=== PATIENT | male | born 1990 | race Caucasian/White ===

== ENCOUNTER 2017-11-25 02:58 | Emergency (ER) | payer SELFPAY ==
[2017-11-25] MEDS ORDERED: ONDANSETRON 4 MG/2 ML VIAL IVP ONE (03:09)
[2017-11-25] MEDS ORDERED: NS 1,000 ML IV ONE ×2 (03:09→04:42)
--- NOTE | 2017-11-25 03:09 | EDPHY ---
H & P Stated Complaint: N/V x3 hours. Time Seen by Provider: 11/25/17 03:09 HPI/ROS: HPI CHIEF COMPLAINT: Nausea vomiting abdominal pain. HISTORY OF PRESENT ILLNESS: This patient is a 27-year-old male, he presents emergency room with abdominal pain. Patient states his main complaint is epigastric abdominal pain with associated vomiting. He states the past 3 hr he has vomited multiple times he describes it is yellow no blood. Denies any chest pain or shortness of breath. His main complaint is epigastric burning pain. He states he when out earlier in the evening and had multiple drinks alcoholic. However he returned home and developed abdominal pain around midnight. No diarrhea. Denies any lower abdominal pain the pain is mid abdomen epigastric. Denies fever. Girlfriend at bedside states that he had multiple shots tonight and beer. Past Medical History: Denies significant medical history Past Surgical History: Denies significant surgical history Social History: Endorses alcohol this evening.. Family History: Noncontributory. ROS REVIEW OF SYSTEMS: A comprehensive 10 point review of systems is otherwise negative aside from elements mentioned in the history of present illness. Exam Constitutional triage nursing summary reviewed, vital signs reviewed, awake/ alert. Eyes normal conjunctivae and sclera, EOMI, PERRLA. HENT normal inspection, atraumatic, moist mucus membranes, no epistaxis, neck supple/ no meningismus, no raccoon eyes. Respiratory clear to auscultation bilaterally, normal breath sounds, no respiratory distress, no wheezing. Cardiovascular rate normal, regular rhythm, no murmur, no edema, distal pulses normal. Gastrointestinal soft, non-tender, no rebound, no guarding, normal bowel sounds, no distension, no pulsatile mass. Genitourinary no CVA tenderness. Musculoskeletal no midline vertebral tenderness, full range of motion, no calf swelling, no tenderness of extremities, no meningismus, good pulses, neurovascularly intact. Skin pink, warm, & dry, no rash, skin atraumatic. Neurologic awake, alert and oriented x 3, AAOx3, moves all 4 extremities equally, motor intact, sensory intact, CN II-XII intact, normal cerebellar, normal vision, normal speech. Psychiatric normal mood/affect. Heme/Lymph/Immune no lymphadenopathy. Differential Diagnosis: Includes but is not limited to in a particular order alcohol-induced gastritis, alcohol-induced pancreatitis, gallbladder disease, acute appendicitis, enteritis, bowel obstruction, dehydration Medical Decision Making: Plan for this patient IV establishment IV fluid bolus Zofran for nausea, IV Pepcid for GI upset CT scan abdomen pelvis with IV contrast rule out significant acute abdominal pathology which includes appendicitis. Re-evaluate. Re-evaluation: CT scan abdomen pelvis with IV contrast shows no evidence of acute inflammatory process. Appendix normal. Called to me by Dr. Murali Mahoney. 0550: Re-evaluated the patient I reassessed his abdomen is soft nontender. He is not vomiting patient is requesting discharge home. Patient is requesting discharge home. He did state that he p. O. Challenge water here very well. I did review his CT scan and blood work with him. He has a mild leukocytosis. Most likely from vomiting. Additionally his LFTs were slightly elevated he understands he needs to follow up with them with his primary care doctor for recheck. Additionally bland diet today no spicy fatty greasy foods. Will prescribe him Zofran and Zantac Return precautions discussed with him he understands return emergency room if develops worsening abdominal pain fever or vomiting. Patient is comfortable this plan. Recommend refraining from drinking alcohol. Source: Patient - Personal History Current Tetanus/Diphtheria Vaccine: Unsure Current Tetanus Diphtheria and Acellular Pertussis (TDAP): Unsure - Medical/Surgical History Hx Asthma: No Hx Chronic Respiratory Disease: No Hx Diabetes: No Hx Cardiac Disease: No Hx Renal Disease: No Hx Cirrhosis: No Hx Alcoholism: No Hx HIV/AIDS: No Hx Splenectomy or Spleen Trauma: No Other PMH: Denies - Social History Smoking Status: Never smoked Constitutional: Initial Vital Signs Temperature (C) 37.0 C 11/25/17 03:02 Heart Rate 94 11/25/17 03:02 Respiratory Rate 18 11/25/17 03:02 Blood Pressure 129/80 H 11/25/17 03:02 O2 Sat (%) 100 11/25/17 03:02 O2 Delivery Mode Room Air Allergies/Adverse Reactions: Penicillins Allergy (Verified 11/25/17 03:07) Home Medications: Medication Instructions Recorded Ondansetron HCl [Zofran] 4 mg PO Q4-6PRN PRN #10 tablet 11/25/17 Ranitidine HCl [Zantac] 150 mg PO DAILY #14 tablet 11/25/17 Medical Decision Making - Data Points Laboratory Results: Laboratory Results 11/25/17 03:30 11/25/17 03:30 11/25/17 11/25/17 03:30 03:30 WBC 15.84 10^3/uL H 10^3/uL (3.80-9.50) RBC 5.21 10^6/uL 10^6/uL (4.40-6.38) Hgb 17.1 g/dL g/dL (13.7-17.5) Hct 45.9 % % (40.0-51.0) MCV 88.1 fL fL (81.5-99.8) MCH 32.8 pg pg (27.9-34.1) MCHC 37.3 g/dL H g/dL (32.4-36.7) RDW 11.8 % % (11.5-15.2) Plt Count 356 10^3/uL 10^3/uL (150-400) MPV 9.7 fL fL (8.7-11.7) Neut % (Auto) 78.7 % H % (39.3-74.2) Lymph % (Auto) 15.1 % % (15.0-45.0) [place] % (Auto) 5.4 % % (4.5-13.0) Eos % (Auto) 0.1 % L % (0.6-7.6) Baso % (Auto) 0.3 % % (0.3-1.7) Nucleat RBC Rel Count 0.0 % % (0.0-0.2) Absolute Neuts (auto) 12.46 10^3/uL H 10^3/uL (1.70-6.50) Absolute Lymphs (auto) 2.39 10^3/uL 10^3/uL (1.00-3.00) Absolute Monos (auto) 0.86 10^3/uL H 10^3/uL (0.30-0.80) Absolute Eos (auto) 0.02 10^3/uL L 10^3/uL (0.03-0.40) Absolute Basos (auto) 0.04 10^3/uL 10^3/uL (0.02-0.10) Absolute Nucleated RBC 0.00 10^3/uL 10^3/uL (0-0.01) Immature Gran % 0.4 % % (0.0-1.1) Immature Gran # 0.07 10^3/uL 10^3/uL (0.00-0.10) Sodium 142 mEq/L mEq/L (135-145) Potassium 4.0 mEq/L mEq/L (3.3-5.0) Chloride 104 mEq/L mEq/L (97-110) Carbon Dioxide 22 mEq/l mEq/l (22-31) Anion Gap 16 mEq/L mEq/L (8-16) BUN 18 mg/dL mg/dL (7-23) Creatinine 0.7 mg/dL mg/dL (0.7-1.3) Estimated GFR > 60 Glucose 119 mg/dL H mg/dL (70-100) Calcium 10.6 mg/dL H mg/dL (8.5-10.4) Total Bilirubin 2.1 mg/dL H mg/dL (0.1-1.4) Conjugated Bilirubin 0.4 mg/dL mg/dL (0.0-0.5) Unconjugated Bilirubin 1.7 mg/dL H mg/dL (0.0-1.1) AST 36 IU/L IU/L (17-59) ALT 128 IU/L H IU/L (21-72) Alkaline Phosphatase 171 IU/L H IU/L (38-126) Total Protein 8.4 g/dL H g/dL (6.3-8.2) Albumin 5.0 g/dL g/dL (3.5-5.0) Lipase 69 IU/L IU/L (23-300) Ethyl Alcohol < 10 mg/dL mg/dL (0-10) Medications Given: Discontinued Medications Famotidine (Pepcid) 20 mg IVP EDNOW ONE Stop: 11/25/17 03:24 Last Admin: 11/25/17 03:29 Dose: 20 mg Haloperidol Lactate (Haldol Injection) 2.5 mg IVP EDNOW ONE Stop: 11/25/17 04:27 Last Admin: 11/25/17 04:28 Dose: 2.5 mg Sodium Chloride (Ns) 1,000 mls @ 0 mls/hr IV EDNOW ONE; Wide Open PRN Reason: Protocol Stop: 11/25/17 03:10 Last Admin: 11/25/17 03:24 Dose: 1,000 mls Sodium Chloride (Ns) 1,000 mls @ 0 mls/hr IV ONCE ONE PRN Reason: Wide Open Stop: 11/25/17 04:43 Last Admin: 11/25/17 04:53 Dose: 1,000 mls Ondansetron HCl (Zofran) 4 mg IVP EDNOW ONE Stop: 11/25/17 03:10 Last Admin: 11/25/17 03:24 Dose: 4 mg Departure - Departure Disposition: Home, Routine, Self-Care Clinical Impression: Abdominal pain Qualifiers: Abdominal location: unspecified location Qualified Code(s): R10.9 - Unspecified abdominal pain Vomiting Qualifiers: Vomiting type: unspecified Vomiting Intractability: non-intractable Nausea presence: with nausea Qualified Code(s): R11.2 - Nausea with vomiting, unspecified Condition: Good Instructions: Acute Abdominal Pain (ED), Acute Nausea and Vomiting (ED) Additional Instructions: 1. [place] diet over the next 24-48 hours. No spicy fatty greasy foods. 2. Nausea medicine if your nauseous. If he continues to vomit return to the ER 3. Antacid medication. 4. Follow up with your primary care doctor and have your liver enzymes recheck to 5. Do not drink alcohol. Stay away from spicy fatty greasy foods. Referrals: NONE *PRIMARY CARE P,. [Primary Care Provider] - As per Instructions Jayesh Higgins MD [Medical Doctor] - As per Instructions Prescriptions: Ondansetron HCl [Zofran] 4 mg PO Q4-6PRN PRN #10 tablet PRN Reason: Nausea/Vomiting, Use 1st Ranitidine HCl [Zantac] 150 mg PO DAILY #14 tablet
[2017-11-25] MEDS ORDERED: FAMOTIDINE 20 MG/2 ML SDV IVP ONE (03:23)
[2017-11-25 03:40] LABS: PLATELET COUNT 356 10^3/uL (150-400)
[2017-11-25] MEDS ORDERED: IOPAMIDOL (ISOVUE-300) 100 ML BTL ONE (03:43)
[2017-11-25] MEDS ORDERED: HALOPERIDOL LACT 5 MG/ML INJ IVP ONE (04:26)
[2017-11-25] MEDS ORDERED: HALOPERIDOL LACT 5 MG/ML INJ ONE (04:27)
[2017-11-25 06:03] VITALS: BP 147/87
== END 2017-11-25 06:02 | disposition home or self-care (01) ==
DX: R11.2 Nausea with vomiting, unspecified (principal); R10.9 Unspecified abdominal pain; E86.9 Volume depletion, unspecified
CPT/HCPCS: 96374; G0480; J1630; J2405; Q9967